=== PATIENT | male | born 1965 | race Caucasian/White ===

== ENCOUNTER 2024-09-05 07:03 | Day surgery (SDC) | payer MEDICAID ==
[~2024-09-05] VITALS: Ht 182.9 cm; Wt 122.5 kg
[2024-09-05] MEDS ORDERED: MEPERIDINE 100 MG INJ. 100 MG/ML VIAL ONE (08:02)
[2024-09-05] MEDS ORDERED: SIMETHICONE 40 MG/0.6 ML ML ONE (08:02)
[2024-09-05] MEDS ORDERED: MIDAZOLAM HCL 5 MG/5 ML VIAL ONE (08:02)
[2024-09-05] MEDS ORDERED: DIPHENHYDRAMINE INJ 50 MG/ML VIAL ONE (08:36)
[2024-09-05 13:23] VITALS: O2SAT 97
[2024-09-05 15:05] VITALS: BP_SYST 113; PULSE 65; RESP 14
== END 2024-09-05 09:32 | disposition home or self-care (01) ==
LOC: SDS 07:03 → SMU 07:05 → SDS 09:32
PROVIDERS: ATTEND Internal Medicine Gastroenterology
DX: Z12.11 Encounter for screening for malignant neoplasm of colon (principal); D12.4 Benign neoplasm of descending colon; K64.8 Other hemorrhoids; E78.5 Hyperlipidemia, unspecified; F17.210 Nicotine dependence, cigarettes, uncomplicated
CPT/HCPCS: 45385; 99152; 88305; G0378; J2250; J2175; J1200